=== PATIENT | female | born 1935 | race Caucasian/White ===

== ENCOUNTER 2017-12-29 11:10 | Outpatient (RCR) | payer MEDICARE, OTHER ==
[2017-12-28] VITALS (16 sets, daily range): BP systolic 140–197; BP diastolic 71–90
[2017-12-28 16:35] LABS: HEMOGLOBIN 9.3 G/DL (11.5-16.0)
[~2017-12-29] VITALS: Ht 157.5 cm; Wt 59.1 kg
[~2017-12-29 11:10] MED LIST: ACHD5005 PO; AMLO10TA4 PO; ASP81CT PO; ATOR40TA PO; CLIN-62 PO; DIAZ-345 PO; DIAZ5TAB49 PO; DIPH1TAB25 PO; FAMO20TA5 PO; FUROSEMIDE 40 MG/4 ML INJ (LASIX) IV ONE; GBPN300C PO; GLMP1T PO; HYDR-707 PO; LABETOLOL PO; LISI10TA2 PO; LISI20TA PO; LISI40TA; LVT.1T PO; MTF500T; MUPI1OIN5 NS; NAPR-243; NS IV 1000 ML 1,000 ML IV SCH; ONDA-42 PO; PARO20TA57 PO; SULF1TAB38 PO; TYLENOL ARTHRITIS PO; cloNIDine 0.1 MG (CATAPRES) TAB PO ONE
== END 2018-03-27 | disposition home or self-care (01) ==
LOC: LAB 11:10
PROVIDERS: ATTEND Internal Medicine
DX: D64.9 Anemia, unspecified (principal); E11.9 Type 2 diabetes mellitus without complications
CPT/HCPCS: 36415; 82274; 82962; 85014; 85018; 86850; 86900; 86901; 86920

== ENCOUNTER → 2019-09-26 | Outpatient (CLI) | payer MEDICARE ==
[~2019-09-26] MED LIST changes: -FUROSEMIDE 40 MG/4 ML INJ (LASIX) IV ONE; -NS IV 1000 ML 1,000 ML IV SCH; -cloNIDine 0.1 MG (CATAPRES) TAB PO ONE
--- NOTE | 2019-09-26 08:41 | Diagnostic Imaging Report ---
EXAMINATION: US Abdomen limited. TECHNIQUE: Multiple real-time grayscale images were obtained over the right upper quadrant in various projections. REASON FOR EXAM: Elevated liver enzymes. COMPARISON: None. FINDINGS: A large masslike area of heterogeneous echogenicity is seen near the homar hepatis within the liver. This is ill-defined and not well appreciated on this exam. Marked intrahepatic biliary dilatation is present. The common bile duct is dilated and measures 1.3 cm. The main portal vein is hepatopedal. No ascites is visualized in the upper abdomen. The gallbladder is not definitively visualized on this exam. However, the large cystic structure in the right upper quadrant may represent a distended gallbladder. Alternatively, this may represent an exophytic cyst off the superior pole of the right kidney. The pancreas is not well visualized due to overlying bowel gas. The visualized portions of the IVC and aorta appear normal. The right kidney measures approximately 8.9 cm in length and has a normal appearance. IMPRESSION: 1. Large masslike area of heterogeneous echogenicity within the homar hepatis with associated intrahepatic biliary dilation and likely distention of the gallbladder. These findings are concerning for cholangiocarcinoma. Recommend further evaluation with liver protocol CT. Findings were discussed with Anusha Coronel at 8:30 AM on 09/26/[address] Lakhwinder Bonner. Dictated by: Dictated on workstation # [id number]
== END ==
LOC: RAD 06:34
PROVIDERS: ATTEND Internal Medicine
DX: R16.0 Hepatomegaly, not elsewhere classified (principal); R74.8 Abnormal levels of other serum enzymes
CPT/HCPCS: 76705

== ENCOUNTER → 2019-09-26 | Outpatient (CLI) | payer MEDICARE ==
[~2019-09-26] MED LIST changes: +CATHETER FLUSH 10 ML SYR IV PRN; +HOLD METFORMIN - RECEIVED CONTRAST 20 ML VIAL IV SCH; +IOHEXOL 350 MG/ML 100 ML (OMNIPAQUE 350) VIAL IV ONE; +NS 100 ML (IVPB) BAG IV ONE
[2019-09-26 13:21] LABS: ALBUMIN 3.7 GM/DL (3.2-4.5); BILIRUBIN,TOTAL 2.6 MG/DL (0.1-1.0); CALCIUM 9.1 MG/DL (8.5-10.1); CREATININE SERUM 1.09 MG/DL (0.60-1.30); TOTAL PROTEIN 6.6 GM/DL (6.4-8.2)
--- NOTE | 2019-09-26 14:31 | Diagnostic Imaging Report ---
CT ABDOMEN/PELVIS W TECHNIQUE: Multiple contiguous axial images were obtained through the abdomen and pelvis after administration of intravenous contrast. All CT scans use one or more of the following dose optimizing techniques: automated exposure control, MA and/or KvP adjustment based on a patient size and exam type, or iterative reconstruction. INDICATION: Liver mass seen on ultrasound. COMPARISON: Liver ultrasound of 09/26/2019. FINDINGS: Lower chest: Large paraesophageal hiatal hernia has approximately half the stomach in the chest. No pulmonary mass or nodule within the lung bases. Peritoneum: No free intraperitoneal air or fluid. Liver and biliary system: At the region of the gallbladder fossa there is a peripherally enhancing centrally necrotic mass measuring 6.5 x 4.7 cm. On delayed phase imaging, there is progressive enhancement of the gtz of the mass which would favor cholangiocarcinoma. This mass appears infiltrative into the liver and results in central obstruction of the common bile ducts. There is marked intrahepatic biliary duct dilatation with abrupt cut-off at the level of the mass as it extends into the homar hepatis. The extrahepatic common bile duct below the mass is not dilated. Spleen and Pancreas: Spleen is normal. The pancreas enhances normally without mass lesion or peripancreatic inflammatory changes. Adrenals: Normal. tract: The kidneys enhance normally without suspicious mass or obstruction. There is an exophytic cyst arising from the mid aspect of the right kidney that measures 2.3 x 5.6 cm. Urinary bladder is distended without wall thickening. Uterus is normal in appearance for patient's age. GI tract: Stomach is partially filled with fluid and there is no definitive wall thickening. No bowel obstruction. No pericolonic inflammatory changes. Sigmoid colon diverticulosis without diverticulitis. Appendix is not seen with certainty, although there are no features that would suggest acute appendicitis. Vasculature and Lymph nodes: Normal caliber aorta has moderate atherosclerotic plaquing present. No abdominal or pelvic lymphadenopathy. Musculoskeletal: No concerning osseous lesion. IMPRESSION: 1. Centrally necrotic and infiltrative mass in the central aspect of the liver appears to have an epicenter at the level of the gallbladder fossa and is most compatible with a cholangiocarcinoma. 2. The mass results in obstruction of the biliary system at the level of the homar hepatis either due to compression or direct invasion of the common hepatic duct. 3. No features of metastatic disease outside the liver. 4. Large hiatal hernia. Dictated by: Dictated on workstation # [id number]
== END ==
LOC: RAD 12:40
PROVIDERS: ATTEND Physician Assistant
DX: R16.0 Hepatomegaly, not elsewhere classified (principal); K44.9 Diaphragmatic hernia without obstruction or gangrene
CPT/HCPCS: 36415; 74177; 80053

== ENCOUNTER 2019-10-25 12:35 | Outpatient (RCR) | payer MEDICARE ==
[~2019-10-25 12:35] MED LIST changes: -CATHETER FLUSH 10 ML SYR IV PRN; -HOLD METFORMIN - RECEIVED CONTRAST 20 ML VIAL IV SCH; -IOHEXOL 350 MG/ML 100 ML (OMNIPAQUE 350) VIAL IV ONE; -NS 100 ML (IVPB) BAG IV ONE
[2019-10-25 13:01] LABS: BASOPHILS % (AUTO) 0 % (0-10); EOSINOPHILS # (AUTO) 0.3 10^3/uL (0.0-0.3); EOSINOPHILS % (AUTO) 4 % (0-10); HEMATOCRIT 38 % (35-52); HEMOGLOBIN 12.2 G/DL (11.5-16.0); LYMPHOCYTES # (AUTO) 1.6 X 10^3 (1.0-4.0); LYMPHOCYTES % (AUTO) 21 % (12-44); MEAN CORPUSCULAR HEMOGLOBIN 27 PG (25-34); MEAN CORPUSCULAR HGB CONC 32 G/DL (32-36); MEAN CORPUSCULAR VOLUME 84 FL (80-99); MEAN PLATELET VOLUME 9.2 FL (7.4-10.4); MONOCYTES # (AUTO) 1.1 X 10^3 (0.0-1.0); MONOCYTES % (AUTO) 13 % (0-12); NEUTROPHILS % (AUTO) 62 % (42-75); PLATELET COUNT 447 10^3/uL (130-400); RED CELL DISTRIBUTION WIDTH 14.8 % (10.0-14.5)
[2019-10-25 13:25] LABS: CALCIUM 9.3 MG/DL (8.5-10.1); CREATININE SERUM 0.93 MG/DL (0.60-1.30); TOTAL PROTEIN 6.7 GM/DL (6.4-8.2)
== END 2020-01-23 | disposition home or self-care (01) ==
LOC: ONC 12:35
PROVIDERS: ATTEND Internal Medicine Hematology & Oncology
DX: C22.1 Intrahepatic bile duct carcinoma (principal); I12.9 Hypertensive chronic kidney disease with stage 1 through stage 4 chronic kidney disease, or unspecified chronic kidney disease; N18.3 Chronic kidney disease, stage 3 (moderate); E03.9 Hypothyroidism, unspecified; E11.9 Type 2 diabetes mellitus without complications; K44.9 Diaphragmatic hernia without obstruction or gangrene; Z79.899 Other long term (current) drug therapy
CPT/HCPCS: 80053; 82378; 85025; 86301; G0463; 99214

== ENCOUNTER → 2020-05-20 | Outpatient (CLI) | payer OTHER, MEDICARE ==
[2020-05-20 13:14] LABS: BILIRUBIN,URINE NEGATIVE (NEGATIVE); CLARITY,URINE CLEAR; COLOR,URINE YELLOW; GLUCOSE, URINE (UA) NEGATIVE (NEGATIVE); KETONES,URINE NEGATIVE (NEGATIVE); LEUKOCYTE ESTERASE ,URINE TRACE (NEGATIVE); NITRITE,URINE NEGATIVE (NEGATIVE); PROTEIN,URINE 2+ (NEGATIVE)
[2020-05-20 13:46] LABS: BACTERIA,URINE FEW /HPF
== END ==
LOC: MERGE 12:54 → LABNPT 12:54
PROVIDERS: ATTEND Internal Medicine
DX: R30.0 Dysuria (principal)
CPT/HCPCS: 81000; 87077; 87088

== ENCOUNTER → 2020-06-25 | Outpatient (CLI) | payer OTHER, MEDICARE ==
[2020-06-25 16:06] LABS: BILIRUBIN,URINE NEGATIVE (NEGATIVE); CLARITY,URINE CLEAR; COLOR,URINE YELLOW; GLUCOSE, URINE (UA) NEGATIVE (NEGATIVE); KETONES,URINE NEGATIVE (NEGATIVE); LEUKOCYTE ESTERASE ,URINE NEGATIVE (NEGATIVE); NITRITE,URINE NEGATIVE (NEGATIVE); PH,URINE 5.5 (5-9); PROTEIN,URINE NEGATIVE (NEGATIVE)
[2020-06-25 16:45] LABS: BACTERIA,URINE TRACE /HPF; HYALINE CASTS, URINE RARE /LPF; SQUAMOUS EPITHELIAL CELL,UR 25-50 /HPF; WBC,URINE RARE /HPF
== END ==
LOC: LABNPT 15:59
PROVIDERS: ATTEND Internal Medicine
DX: R30.0 Dysuria (principal)
CPT/HCPCS: 81000